=== PATIENT | male | born 1975 | race Two or more races ===

== ENCOUNTER 2018-03-28 01:30 | Emergency (ER) | payer OTHER ==
[~2018-03-28] VITALS: Ht 175.3 cm; Wt 99.8 kg
--- NOTE | 2018-03-28 01:45 | NUR ---
BIBA +SI, STATES HE "WANTS TO JUMP IN FRONT OF MOVING TRAFFIC". HX OF BIPOLAR SCHIZOPHRENIA, +AUDITORY HALLUCINATIONS. PT IS HOMELESS. AOX4, VSS, RESPIRATIONS EVEN AND UNLABORED. SKIN WARM TO TOUCH, DRY, INTACT. DENIES SOB, DIZZINESS, WEAKNESS, N/V/D. PT PLACED ON SUICIDAL PRECAUTIONS. WILL CONT TO MONITOR CLOSELY.
[2018-03-28 02:10] LABS: BASOPHILS % (AUTO) 0.5 % (0.0-2.0); EOSINOPHILS % (AUTO) 0.8 % (0.0-6.0); HEMATOCRIT 41 % (39-51); HEMOGLOBIN 13.2 g/dL (13.5-17.5); LYMPHOCYTES # (AUTO) 1.9 /CMM (0.8-4.8); LYMPHOCYTES % (AUTO) 26.9 % (20.0-44.0); MEAN CORPUSCULAR HGB CONC 32 g/dl (31.0-36.0); MEAN CORPUSCULAR VOLUME 92 fL (80-96); MONOCYTES # (AUTO) 0.8 /CMM (0.1-1.30); NEUTROPHILS # (AUTO) 4.4 /CMM (1.8-8.9); NEUTROPHILS % (AUTO) 60.8 % (43.0-81.0); PLATELET COUNT (AUTO) 198 /CMM (150-450); WHITE BLOOD COUNT (AUTO) 7.2 K/uL (4.3-11.0)
[2018-03-28 02:22] LABS: ALCOHOL, BLOOD < 3 mg/dL (0-0); CALCIUM, SERUM 8.5 mg/dL (8.5-10.1); CARBON DIOXIDE 29 mmol/L (21-32); CHLORIDE 104 mmol/L (98-107); CREATININE 1.1 mg/dL (0.6-1.3); GLUCOSE 111 mg/dL (74-106); POTASSIUM 4.3 mmol/L (3.5-5.1); SODIUM SERUM 138 mmol/L (136-145); UREA NITROGEN, BLOOD 25 mg/dL (7-18)
[2018-03-28 02:31] LABS: VALPROIC ACID < 3 ug/mL (50-100)
--- NOTE | 2018-03-28 02:33 | NUR ---
CALLED DAO DUFF, RE: EVALUATING THE PT.
--- NOTE | 2018-03-28 03:07 | NUR ---
DAO DUFF, ARRIVED AND IS REVIEWING PT'S CHART.
--- NOTE | 2018-03-28 03:46 | NUR ---
PER DAO DUFF, PT IS TO GO TO [facility] IN THE AM. DO NOT FAX PAPERWORK TO INTAKE UNTIL AFTER 8AM BEDS ARE NOT AVAILABLE. ( PER HEMA AT [facility]). PACKET TO FAX TO [facility] INTAKE IS IN THE CHART.
--- NOTE | 2018-03-28 05:31 | NUR ---
Patient is resting comfortably in bed with eyes closed. Easily aroused. VSS
--- NOTE | 2018-03-28 06:03 | NUR ---
Patient is resting comfortably in bed with eyes closed. Easily aroused. VSS
--- NOTE | 2018-03-28 07:01 | NUR ---
PT APPEARS TO BE RESTING COMFORTABLY WITH NO S/S OF PAIN OR DISTRESS NOTED. VSS. WILL CONTINUE TO MONITOR THE PT.
--- NOTE | 2018-03-28 07:50 | NUR ---
pt sleeping upon rounds - resp easy and regular waiting for placement.
--- NOTE | 2018-03-28 08:33 | NUR ---
Face sheet and clinical information faxed to Abbie at [facility] intake.
--- NOTE | 2018-03-28 09:19 | NUR ---
Called Abbie at [facility] intake; will have a bed in 30 min
--- NOTE | 2018-03-28 11:01 | NUR ---
Abbie from [facility] intake, called back and states that they are unable to take the patient
--- NOTE | 2018-03-28 13:22 | NUR ---
pt became very combative and started screaming and yelling security at bedside
--- NOTE | 2018-03-28 13:25 | NUR ---
pt was escorted out by automotive technician and security
--- NOTE | 2018-03-28 13:48 | NUR ---
PT. VERBALIZED UNDERSTANDING OF AFTERCARE INSTRUCTIONS.Patient discharged to home in stable condition. Written and verbal after care instructions given. Patient verbalizes understanding of instruction. Pt advised to follow up with [facility] or primary
[2018-03-28 13:49] VITALS: BP 109/81
[2018-03-29] MEDS ORDERED: OLANZAPINE 10 MG VIAL IM ONE (09:37)
== END 2018-03-28 13:50 | disposition home or self-care (01) ==
LOC: ER 01:33
DX: F32.9 Major depressive disorder, single episode, unspecified (principal)
CPT/HCPCS: 36415; 80048-TC; 80164-TC; 80305; 85025-TC; A4606; G0480; J3490; Z7610

== ENCOUNTER 2018-03-28 14:50 | Emergency (ER) | payer OTHER ==
[~2018-03-28] VITALS: Ht 172.7 cm; Wt 95.3 kg
--- NOTE | 2018-03-28 15:35 | NUR ---
PT [employer], WAS WALKING IN THE STREET AFTER BEING DISCHARGED FROM [facility] AND BROUGHT BACK IN. DENIES SI/HI AT THIS TIME. RESP EVEN UNLABORED. PT YELLING AND BEING UNCOOPERATIVE AT THIS TIME. IN ER BED 04.
--- NOTE | 2018-03-28 17:30 | NUR ---
SARBJIT, CRISIS SHOE TRIMMER AT BEDSIDE
--- NOTE | 2018-03-28 18:56 | NUR ---
PT ASLEEP WITH BLANKET OVER HIS HEAD, EASILY AROUSABLE. CALLED FOR DINNER TRAY. ALL NEEDS ATTENDED TO.
--- NOTE | 2018-03-28 19:10 | NUR ---
BK PICKERING AT BEDSIDE 1:1 SITTER. NAD NOTED.
--- NOTE | 2018-03-28 21:41 | NUR ---
RESTING QUIETLY, NAD NOTED. LADAN BOURGEOIS REMAINS AT BEDSIDE. ASLEEP, EASILY AROUSABLE.
--- NOTE | 2018-03-29 00:10 | NUR ---
REPORT GIVEN TO SHANI RODRIGUEZ FOR JONATHON
--- NOTE | 2018-03-29 01:23 | NUR ---
STATES "I WANT FOOD". INFORMED BY DAVID "I WILL GET YOU A SANDWICH". PT SCREAMING "I WANT A REAL MEAL". PT INFORMED BY MYSELF "WE ONLY HAVE A SANDWICH AND THAT'S ALL WE CAN OFFER". PT STATES "WHATEVER". ALSO INFORMED PT HE WILL BE STAYING HERE THE WHOLE NIGHT BECAUSE ALL HOSPITALS REFUSED TO TAKE HIM.
[2018-03-29] MEDS ORDERED: LORAZEPAM 1 MG TABLET PO ONE (01:30)
[2018-03-29] MEDS ORDERED: OLANZAPINE 5 MG TABLET PO ONE (01:30)
--- NOTE | 2018-03-29 02:04 | NUR ---
RESTING WITH EYES CLOSED WITHOUT ANY S/S OF DISTRESS. RESP EVEN AND UNLABORED. "ALREADY HAD SANDWICH" PER SITTER.
--- NOTE | 2018-03-29 03:14 | NUR ---
REMAINS RESTING ON LT SIDE WITH NO S/S OF DSITRESS AT THIS TIME. RESP EVEN AND UNLABORED. SITTER STILL AT BEDSIDE.
--- NOTE | 2018-03-29 04:36 | NUR ---
MOVED TO ROOM 7 AT THIS TIME FOR SITTER TO WATCH BOTH SUICIDAL PTS
--- NOTE | 2018-03-29 06:11 | NUR ---
CALLED FROM [facility]. PER THOMAS/STEPHEN "PT IS ACCEPTED BUT NO BEDS AT THE MOMENT UNTIL DISCHARGES". ALSO "UNABLE TO PROVIE ACCEPTING DOCTOR AT THIS TIME. CALL US BACK AT [phone] FOR F/U"
--- NOTE | 2018-03-29 07:22 | NUR ---
Ailyn haque in [facility] - 03/29/18 at 3843 by FUNMILAYO KEYONA HIGHTOWER [phone]
--- NOTE | 2018-03-29 07:39 | NUR ---
REPORT GIVEN TO INDIA/CHG NURSE FOR JONATHON.
[2018-03-29] MEDS ORDERED: OLANZAPINE 10 MG VIAL IM ONE (10:00)
--- NOTE | 2018-03-29 10:21 | NUR ---
Ailyn haque in [facility] - 03/29/18 at 1058 by NASIMA ANG DC ON SITE FOR EVAL.
--- NOTE | 2018-03-29 10:58 | NUR ---
DR. ANDREA ON SITE FOR EVAL.
[2018-03-29] MEDS ORDERED: OLANZAPINE 5 MG TABLET PO SCH (11:00)
[2018-03-29] MEDS ORDERED: DIVALPROEX SODIUM 500 MG TABLET.DR PO SCH (11:00)
--- NOTE | 2018-03-29 11:24 | NUR ---
Report given to Devi RODRIGUEZ for continuity of care at [facility] pt will be going to room 223
[2018-03-29] MEDS ORDERED: DIVALPROEX SODIUM 500 MG TABLET.DR PO ONE (11:36)
[2018-03-29] MEDS ORDERED: OLANZAPINE 5 MG TABLET ONE (11:37)
[2018-03-29] MEDS ORDERED: clonazePAM 1 MG TABLET ONE (11:37)
--- NOTE | 2018-03-29 11:53 | NUR ---
CALLED ANDREA FOR BLS TRANSPORT TO [facility] 30 MIN ETA TRIP #: [id number]
[2018-03-29 12:53] VITALS: BP 125/65
--- NOTE | 2018-03-29 12:54 | NUR ---
PT LEFT VIA AMBULANCE ACCOMPANIED BY 2 EMT'S GOING TO [facility].
--- NOTE | 2018-03-29 12:54 | NUR ---
Patient discharged to home in stable condition. Written and verbal after care instructions given. Patient verbalizes understanding of instruction.
[2018-03-29] MEDS ORDERED: clonazePAM 1 MG TABLET PO SCH (13:00)
== END 2018-03-29 12:54 ==
LOC: ER 14:53
DX: R45.851 Suicidal ideations (principal); F20.9 Schizophrenia, unspecified; F32.9 Major depressive disorder, single episode, unspecified; F17.200 Nicotine dependence, unspecified, uncomplicated; Z59.0 Homelessness
CPT/HCPCS: 96372; 99285; A4606; Z7610

== ENCOUNTER 2019-07-06 10:58 | Emergency (ER) | payer OTHER ==
[~2019-07-06] VITALS: Ht 175.3 cm; Wt 94.3 kg
--- NOTE | 2019-07-06 11:16 | NUR ---
"I want to get clearance to go to [facility]- Episodes of SI run into traffic". REPORTS HX SCHIZOAFFECTIVE AND BIPOLAR DISORDER, WITH AUDITORY AND VISUAL HALLUCINATIONS. DENIES HI. DENIES SOB, PAIN, OR ANY OTHER MEDICAL COMPLAINTS AT THIS TIME. SUICIDE PRECAUTIONS IN PLACE: BELONGINGS LABELED AND STORED IN PT LOCKERS, PT IN GOWN, SITTER AT BEDSIDE. SECURITY CALLED FOR WANDING. READY FOR MD KEN.
--- NOTE | 2019-07-06 11:19 | NUR ---
SECURITY AT BEDSIDE FOR WANDING. URINE SENT TO [facility].
--- NOTE | 2019-07-06 11:32 | NUR ---
FOOD TRAY GIVEN
--- NOTE | 2019-07-06 11:45 | NUR ---
DR HARGROVE AT BEDSIDE FOR EVAL.
[2019-07-06 11:56] LABS: APPEARANCE,URINE Clear (CLEAR); BILIRUBIN,URINE Negative (NEGATIVE); BLOOD, URINE Trace-intact Ery/uL (NEGATIVE); COLOR,URINE Yellow (YELLOW); KETONES,URINE Negative (NEGATIVE); LEUKOCYTE ESTERASE ,URINE Trace (NEGATIVE); NITRITE, URINE Negative (NEGATIVE); PROTEIN,URINE Negative (NEGATIVE); UGLUCOSE Negative (NEGATIVE); UROBILINOGEN,URINE 0.2 EU/dL (0.2)
--- NOTE | 2019-07-06 11:57 | NUR ---
TERRAZZO WORKER AT BEDSIDE
[2019-07-06 12:05] LABS: BACTERIA,URINE Few /HPF (None Seen); RBC,URINE 0-2 /HPF (0-2); SQUAMOUS EPITHELIAL CELL,UR None Seen /HPF (None Seen)
[2019-07-06 12:06] LABS: BASOPHILS % (AUTO) 0.5 % (0.0-2.0); EOSINOPHILS % (AUTO) 0.1 % (0.0-6.0); HEMATOCRIT 39 % (39-51); HEMOGLOBIN 12.8 g/dL (13.5-17.5); LYMPHOCYTES # (AUTO) 2.5 /CMM (0.8-4.8); LYMPHOCYTES % (AUTO) 28.4 % (20.0-44.0); MEAN CORPUSCULAR HGB CONC 33 g/dl (31.0-36.0); MEAN CORPUSCULAR VOLUME 92 fL (80-96); MONOCYTES # (AUTO) 0.6 /CMM (0.1-1.30); MONOCYTES % (AUTO) 6.4 % (2.0-12.0); NEUTROPHILS # (AUTO) 5.7 /CMM (1.8-8.9); NEUTROPHILS % (AUTO) 64.6 % (43.0-81.0); PLATELET COUNT (AUTO) 218 /CMM (150-450); RED BLOOD CELL COUNT(AUTO) 4.22 MIL/uL (4.5-6.0); WHITE BLOOD COUNT (AUTO) 8.8 K/uL (4.3-11.0)
[2019-07-06 12:14] LABS: CALCIUM, SERUM 8.7 mg/dL (8.5-10.1); CARBON DIOXIDE 31 mmol/L (21-32); CHLORIDE 104 mmol/L (98-107); CREATININE 0.9 mg/dL (0.6-1.3); GLUCOSE 101 mg/dL (74-106); POTASSIUM 3.8 mmol/L (3.5-5.1); SODIUM SERUM 140 mmol/L (136-145); UREA NITROGEN, BLOOD 13 mg/dL (7-18)
[2019-07-06 12:21] LABS: ACETAMINOPHEN 0 ug/ml (10-30); ALANINE AMINOTRANSFERASE 15 U/L (12-78); ALBUMIN 3.5 g/dL (3.4-5.0); ALCOHOL, BLOOD < 3 mg/dL (0-0); ALKALINE PHOSPHATASE 84 U/L (46-116); ASPARTATE AMINOTRANSFERASE 14 U/L (15-37); BILIRUBIN,DIRECT 0.1 mg/dL (0.0-0.2); BILIRUBIN,TOTAL 0.4 mg/dL (0.2-1.0); SALICYLATE 1.9 mg/dL (2.8-20.0); TOTAL PROTEIN, SERUM 7.1 g/dL (6.4-8.2)
--- NOTE | 2019-07-06 12:21 | NUR ---
Per ED notes, pt is a 44 year old male who came to [facility] seeking voluntary psychiatric admission to [facility]. CHATA contacted Uriel to initiate psychiatric admission to [facility]. Uriel informed CHATA, they will have a bed for the pt and to fax clinicals to intake. Labs are pending at this time. ARBORER to fax clinicals once labs are available.
--- NOTE | 2019-07-06 13:17 | NUR ---
Clinicals faxed [facility]pt.
--- NOTE | 2019-07-06 13:26 | NUR ---
PER CHATA SILVA, CLINICALS FAXED TO [facility]
--- NOTE | 2019-07-06 13:32 | NUR ---
Patient is resting comfortably in bed with eyes closed. Easily aroused. VSS
--- NOTE | 2019-07-06 14:45 | NUR ---
Ailyn haque in ED - 07/06/19 at 1457 by SUMEET Patient discharged to home in stable condition. Written and verbal after care instructions given. Patient verbalizes understanding of instruction.
--- NOTE | 2019-07-06 15:51 | NUR ---
PT STATING HE IS NO LONGER SUICIDAL AND WANTS TO LEAVE. AMBULATES WITH A STEADY GAIT. ERMD NOTIFIED.
--- NOTE | 2019-07-06 16:06 | NUR ---
Patient discharged to home in stable condition. Written and verbal after care instructions given. Patient verbalizes understanding of instruction.
[2019-07-06 16:10] VITALS: BP 126/78
== END 2019-07-06 16:10 | disposition home or self-care (01) ==
LOC: ER 11:02
DX: R45.851 Suicidal ideations (principal); F31.9 Bipolar disorder, unspecified; F20.9 Schizophrenia, unspecified; Z59.0 Homelessness
CPT/HCPCS: 36415; 80048; 80076; 80305; 80307; 80329; 81001; 85025; 99283; G0480; 81000-TC

== ENCOUNTER 2019-07-09 20:02 | Emergency (ER) | payer OTHER ==
[~2019-07-09] VITALS: Ht 175.3 cm; Wt 94.3 kg
--- NOTE | 2019-07-09 20:27 | NUR ---
SITTER AT BEDSIDE
--- NOTE | 2019-07-09 20:27 | NUR ---
PT BIBSELF C/O SUICIDAL IDEATION WITH PLAN TO RUN INTO TRAFFIC. PT DENIES HI OR HALLUCINATIONS AT THIS TIME. PT AAOX4. CALM AND COOPERATIVE. VITAL SIGNS STABLE. RESPIRATIONS EVEN AND UNLABORED. SKIN INTACT. AMBULATORY WITH STEADY GAIT. NO ACUTE DISTRESS NOTED AT THIS TIME. PT PLACED IN GOWN. BELONGINGS COLLECTED AND PLACED IN PATIENT LOCKER.
--- NOTE | 2019-07-09 20:30 | NUR ---
URINE SPECIMEN COLLECTED AND SENT TO LAB.
--- NOTE | 2019-07-09 20:35 | NUR ---
ER PHLEB AT BEDSIDE FOR BLOOD DRAW.
[2019-07-09 20:40] LABS: APPEARANCE,URINE Clear (CLEAR); BASOPHILS # (AUTO) 0.3 /CMM (0.0-0.2); BASOPHILS % (AUTO) 3.5 % (0.0-2.0); BILIRUBIN,URINE Negative (NEGATIVE); BLOOD, URINE Negative Ery/uL (NEGATIVE); COLOR,URINE Yellow (YELLOW); EOSINOPHILS % (AUTO) 1.1 % (0.0-6.0); HEMATOCRIT 40 % (39-51); HEMOGLOBIN 13.2 g/dL (13.5-17.5); KETONES,URINE Negative (NEGATIVE); LEUKOCYTE ESTERASE ,URINE Trace (NEGATIVE); LYMPHOCYTES # (AUTO) 1.3 /CMM (0.8-4.8); LYMPHOCYTES % (AUTO) 14.2 % (20.0-44.0); MEAN CORPUSCULAR HGB CONC 33 g/dl (31.0-36.0); MEAN CORPUSCULAR VOLUME 93 fL (80-96); MONOCYTES # (AUTO) 0.5 /CMM (0.1-1.30); MONOCYTES % (AUTO) 4.9 % (2.0-12.0); NEUTROPHILS # (AUTO) 7.2 /CMM (1.8-8.9); NEUTROPHILS % (AUTO) 76.3 % (43.0-81.0); NITRITE, URINE Negative (NEGATIVE); PH,URINE 5.5 (5.0-8.0); PLATELET COUNT (AUTO) 230 /CMM (150-450); PROTEIN,URINE Negative (NEGATIVE); RED BLOOD CELL COUNT(AUTO) 4.33 MIL/uL (4.5-6.0); UGLUCOSE Negative (NEGATIVE); UROBILINOGEN,URINE 0.2 EU/dL (0.2); WHITE BLOOD COUNT (AUTO) 9.5 K/uL (4.3-11.0)
[2019-07-09 20:47] LABS: BACTERIA,URINE None seen /HPF (None Seen); RBC,URINE 0-2 /HPF (0-2); SQUAMOUS EPITHELIAL CELL,UR None Seen /HPF (None Seen)
[2019-07-09 20:55] LABS: CARBON DIOXIDE 29 mmol/L (21-32); CHLORIDE 105 mmol/L (98-107); CREATININE 1.3 mg/dL (0.6-1.3); GLUCOSE 141 mg/dL (74-106); POTASSIUM 3.8 mmol/L (3.5-5.1); SODIUM SERUM 141 mmol/L (136-145); UREA NITROGEN, BLOOD 22 mg/dL (7-18)
[2019-07-09 21:11] LABS: ACETAMINOPHEN 0 ug/ml (10-30); ALANINE AMINOTRANSFERASE 9 U/L (12-78); ALBUMIN 3.5 g/dL (3.4-5.0); ALCOHOL, BLOOD < 3 mg/dL (0-0); ALKALINE PHOSPHATASE 104 U/L (46-116); ASPARTATE AMINOTRANSFERASE 11 U/L (15-37); BILIRUBIN,DIRECT 0.1 mg/dL (0.0-0.2); BILIRUBIN,TOTAL 0.3 mg/dL (0.2-1.0); SALICYLATE 2.3 mg/dL (2.8-20.0); TOTAL PROTEIN, SERUM 7.3 g/dL (6.4-8.2)
--- NOTE | 2019-07-09 21:45 | NUR ---
INFORMED BY [facility] SUAREZ THAT PT IS ON THE DO NOT ADMIT LIST. HE WAS ALSO D/C FROM [facility] THIS MORNING.
--- NOTE | 2019-07-09 22:02 | NUR ---
CALLED CRISIS CLINICAN JENNIFER DUFF FOR EVALUATION. WILL FOLLOW UP
--- NOTE | 2019-07-09 22:08 | NUR ---
SPOKE WITH TOOL CHECKER JENNIFER DUFF AND [facility]
--- NOTE | 2019-07-09 22:15 | NUR ---
[facility] PER LLUVIA FROM [facility], NO MALE BED AVAILABLE AT THIS TIME. WILL FOLLOW UP
[2019-07-09 22:36] VITALS: BP 121/88
--- NOTE | 2019-07-09 22:36 | NUR ---
Patient given written and verbal discharge instructions. Patient verbalizes understanding of instructions. Patient is ambulatory with steady gait. Refuses offer of long-term placement. Patient given list of available shelters in surrounding area.
== END 2019-07-09 22:38 | disposition home or self-care (01) ==
LOC: ER 20:05
DX: R45.851 Suicidal ideations (principal); F15.10 Other stimulant abuse, uncomplicated; F31.9 Bipolar disorder, unspecified; F20.9 Schizophrenia, unspecified; Z59.0 Homelessness
CPT/HCPCS: 36415; 80048; 80076; 80305; 80307; 80329; 81001; 85025; 99284; G0480; 81000-TC

== ENCOUNTER 2019-08-05 04:55 | Emergency (ER) | payer OTHER ==
[~2019-08-05] VITALS: Ht 175.3 cm; Wt 97.5 kg
--- NOTE | 2019-08-05 04:55 | NUR ---
TO ER BED 11 AMBULATORY C/O SI WITH PLAN TO WALK INTO TRAFFIC. DENIES HI. PT AAOX4 NO ACUTE DISTRESS NOTED, RESP EVEN AND UNLABORED. PT CALM AND COOPERATIVE AT THIS TIME. PLACE PT ON HOSPITAL GOWN, ALL BELONGINGS REMOVED, 1:1 SITTER AT BEDSIDE FOR PT SAFETY. URINE SAMPLE COLLECTED AND SENT TO LAB.
--- NOTE | 2019-08-05 05:41 | NUR ---
ENTRY ANALYST AT BEDSIDE FOR BLOOD DRAW.
[2019-08-05 05:44] LABS: BASOPHILS # (AUTO) 0.1 /CMM (0.0-0.2); EOSINOPHILS % (AUTO) 1.2 % (0.0-6.0); HEMATOCRIT 41 % (39-51); HEMOGLOBIN 13.5 g/dL (13.5-17.5); LYMPHOCYTES # (AUTO) 2.1 /CMM (0.8-4.8); LYMPHOCYTES % (AUTO) 26.9 % (20.0-44.0); MEAN CORPUSCULAR HGB CONC 33 g/dl (31.0-36.0); MEAN CORPUSCULAR VOLUME 93 fL (80-96); MONOCYTES # (AUTO) 0.8 /CMM (0.1-1.30); MONOCYTES % (AUTO) 9.6 % (2.0-12.0); NEUTROPHILS # (AUTO) 4.8 /CMM (1.8-8.9); NEUTROPHILS % (AUTO) 61.3 % (43.0-81.0); PLATELET COUNT (AUTO) 234 /CMM (150-450); RED BLOOD CELL COUNT(AUTO) 4.41 MIL/uL (4.5-6.0); WHITE BLOOD COUNT (AUTO) 7.9 K/uL (4.3-11.0)
[2019-08-05 05:47] LABS: APPEARANCE,URINE CLEAR (CLEAR); BILIRUBIN,URINE NEGATIVE (NEGATIVE); BLOOD, URINE NEGATIVE Ery/uL (NEGATIVE); COLOR,URINE YELLOW (YELLOW); KETONES,URINE NEGATIVE (NEGATIVE); LEUKOCYTE ESTERASE ,URINE TRACE (NEGATIVE); NITRITE, URINE NEGATIVE (NEGATIVE); PROTEIN,URINE NEGATIVE (NEGATIVE); UGLUCOSE NEGATIVE (NEGATIVE)
[2019-08-05 06:03] LABS: BACTERIA,URINE None seen /HPF (None Seen); CALCIUM, SERUM 9.1 mg/dL (8.5-10.1); CARBON DIOXIDE 30 mmol/L (21-32); CHLORIDE 102 mmol/L (98-107); CREATININE 1.1 mg/dL (0.6-1.3); GLUCOSE 78 mg/dL (74-106); RBC,URINE 0-2 /HPF (0-2); SODIUM SERUM 140 mmol/L (136-145); SQUAMOUS EPITHELIAL CELL,UR Few /HPF (None Seen); UREA NITROGEN, BLOOD 24 mg/dL (7-18)
[2019-08-05 06:12] LABS: ALANINE AMINOTRANSFERASE 27 U/L (12-78); ALBUMIN 3.7 g/dL (3.4-5.0); ALCOHOL, BLOOD < 3 mg/dL (0-0); ALKALINE PHOSPHATASE 84 U/L (46-116); ASPARTATE AMINOTRANSFERASE 25 U/L (15-37); BILIRUBIN,DIRECT 0.2 mg/dL (0.0-0.2); BILIRUBIN,TOTAL 0.7 mg/dL (0.2-1.0); TOTAL PROTEIN, SERUM 7.9 g/dL (6.4-8.2)
[2019-08-05 06:17] LABS: ACETAMINOPHEN 0 ug/ml (10-30); SALICYLATE 1.5 mg/dL (2.8-20.0)
--- NOTE | 2019-08-05 09:14 | NUR ---
FACESHEET AND CLINICALS RE FAXED. CALLED INTAKE. SPOKE TO [facility] FOR CONFIRMATION.
--- NOTE | 2019-08-05 12:03 | NUR ---
PT ACCEPTED TO [facility]. ACCEPTING PSYCHIATRIST MITA. CALL KRISTY FOR REPORT [phone] EX [phone] OR EX [phone]
[2019-08-05 12:06] VITALS: BP 122/71
--- NOTE | 2019-08-05 12:20 | NUR ---
CALLED CALL THE CAR [phone] ROSALIO 2-3 HOURS ETA
--- NOTE | 2019-08-05 12:58 | NUR ---
REPORT GIVEN TO KAREL RODRIGUEZ OF [facility]
== END 2019-08-05 13:00 ==
LOC: ER 04:57
DX: R45.851 Suicidal ideations (principal); F17.200 Nicotine dependence, unspecified, uncomplicated; Z59.0 Homelessness
CPT/HCPCS: 36415; 80048; 80076; 80305; 80307; 80329; 81001; 85025; 87086; 99285; G0480; 81000-TC

== ENCOUNTER 2019-08-10 22:03 | Emergency (ER) | payer OTHER ==
[~2019-08-10] VITALS: Ht 175.3 cm; Wt 94.3 kg
[2019-08-10 23:00] LABS: BASOPHILS # (AUTO) 0.1 /CMM (0.0-0.2); BASOPHILS % (AUTO) 0.8 % (0.0-2.0); EOSINOPHILS % (AUTO) 1.6 % (0.0-6.0); HEMATOCRIT 42 % (39-51); HEMOGLOBIN 13.9 g/dL (13.5-17.5); LYMPHOCYTES # (AUTO) 2.6 /CMM (0.8-4.8); LYMPHOCYTES % (AUTO) 25.8 % (20.0-44.0); MEAN CORPUSCULAR HGB CONC 33 g/dl (31.0-36.0); MEAN CORPUSCULAR VOLUME 93 fL (80-96); MONOCYTES # (AUTO) 0.7 /CMM (0.1-1.30); MONOCYTES % (AUTO) 6.7 % (2.0-12.0); NEUTROPHILS # (AUTO) 6.6 /CMM (1.8-8.9); NEUTROPHILS % (AUTO) 65.1 % (43.0-81.0); PLATELET COUNT (AUTO) 234 /CMM (150-450); RED BLOOD CELL COUNT(AUTO) 4.55 MIL/uL (4.5-6.0); WHITE BLOOD COUNT (AUTO) 10.1 K/uL (4.3-11.0)
--- NOTE | 2019-08-10 23:02 | NUR ---
S/I PLANS TO RUN INTO TRAFFIC, PT TO BED 14, BELONGINGS KEPT IN LOCKER, SI PRECAUTIONS STARTED, 1:1 SITTER, VSS.
[2019-08-10 23:04] LABS: APPEARANCE,URINE Clear (CLEAR); BILIRUBIN,URINE Negative (NEGATIVE); BLOOD, URINE Negative Ery/uL (NEGATIVE); COLOR,URINE Yellow (YELLOW); KETONES,URINE Negative (NEGATIVE); LEUKOCYTE ESTERASE ,URINE Small (NEGATIVE); NITRITE, URINE Negative (NEGATIVE); PH,URINE 5.5 (5.0-8.0); PROTEIN,URINE Negative (NEGATIVE); UGLUCOSE Negative (NEGATIVE); UROBILINOGEN,URINE 0.2 EU/dL (0.2)
[2019-08-10 23:13] LABS: ALANINE AMINOTRANSFERASE 22 U/L (12-78); ALBUMIN 3.7 g/dL (3.4-5.0); ALCOHOL, BLOOD < 3 mg/dL (0-0); ALKALINE PHOSPHATASE 98 U/L (46-116); ASPARTATE AMINOTRANSFERASE 18 U/L (15-37); BILIRUBIN,DIRECT 0.1 mg/dL (0.0-0.2); BILIRUBIN,TOTAL 0.6 mg/dL (0.2-1.0); CALCIUM, SERUM 9.5 mg/dL (8.5-10.1); CARBON DIOXIDE 33 mmol/L (21-32); CHLORIDE 103 mmol/L (98-107); CREATININE 1.2 mg/dL (0.6-1.3); GLUCOSE 87 mg/dL (74-106); POTASSIUM 5.1 mmol/L (3.5-5.1); SODIUM SERUM 139 mmol/L (136-145); TOTAL PROTEIN, SERUM 8.2 g/dL (6.4-8.2); UREA NITROGEN, BLOOD 19 mg/dL (7-18)
[2019-08-10 23:16] LABS: ACETAMINOPHEN 0 ug/ml (10-30); SALICYLATE 1.9 mg/dL (2.8-20.0)
[2019-08-10 23:28] LABS: BACTERIA,URINE Few /HPF (None Seen); RBC,URINE 0-2 /HPF (0-2); SQUAMOUS EPITHELIAL CELL,UR Rare /HPF (None Seen); WBC,URINE 21-50 /HPF (0-3)
--- NOTE | 2019-08-11 01:24 | NUR ---
PT RESTING COMFORTABLY IN BED. NO ACUTE DISTRESS NOTED. VSS. SITTER AT BEDSIDE FOR SAFETY
--- NOTE | 2019-08-11 04:38 | NUR ---
PT ACCEPTED TO [facility] BY DR MARTINEZ. UNIT P6. # FOR REPORT [phone]
--- NOTE | 2019-08-11 04:57 | NUR ---
[facility] CALLED FOR TRANSPORT. ETA 90-120 MINUTES
--- NOTE | 2019-08-11 05:43 | NUR ---
PER SOCAL SADIE, THEY ARE NOT ACCEPTING THE PATIENT.
--- NOTE | 2019-08-11 06:19 | NUR ---
PT ACC[facility]PTED TO [facility] BY DR CHAVARRIA AFTER 729. # FOR REPORT [phone]
--- NOTE | 2019-08-11 07:18 | NUR ---
[facility]. 45 MINUTE ETA. TRIP NUMBER [id number].
--- NOTE | 2019-08-11 08:05 | NUR ---
REPORT GIVEN TO JENNIFER [facility]ENGA [facility] FOR [facility].
[2019-08-11 08:06] VITALS: BP 121/71
--- NOTE | 2019-08-11 08:19 | NUR ---
FOOD TRAY PROVIDED.
--- NOTE | 2019-08-11 08:55 | NUR ---
REPORT GIVEN TO EMS FOR PT TRANSFER TO [facility].
== END 2019-08-11 09:00 ==
LOC: ER 22:03
DX: R45.851 Suicidal ideations (principal); F19.10 Other psychoactive substance abuse, uncomplicated; F31.9 Bipolar disorder, unspecified; F20.9 Schizophrenia, unspecified; Z59.0 Homelessness
CPT/HCPCS: 36415; 80048; 80076; 80305; 80307; 80329; 81001; 85025; 87086; 99285; G0480; 81000-TC

== ENCOUNTER 2019-09-18 06:05 | Emergency (ER) | payer OTHER ==
[~2019-09-18] VITALS: Ht 175.3 cm; Wt 93.0 kg
--- NOTE | 2019-09-18 06:25 | NUR ---
CALLED PT TO BE TRIAGED, NO ANSWER
--- NOTE | 2019-09-18 06:35 | NUR ---
CALLED PT TO BE TRIAGED, NO ANSWER
--- NOTE | 2019-09-18 06:44 | NUR ---
Patient eloped from facility. ER MD notified.
--- NOTE | 2019-09-18 07:05 | NUR ---
PT BIB SELF C/O SUICIDAL IDEATION WITH PLAN TO RUN INTO TRAFFIC, PT IS AAXO4, NOT IN RESPIRATORY DISTRESS, V/S STABLE, KEPT RESTED AND COMFORTABLE, WILL CONTINUE TO MONITOR.
--- NOTE | 2019-09-18 07:10 | NUR ---
PT SEEN AND EXAMINED BY .
[2019-09-18 07:20] LABS: APPEARANCE,URINE CLEAR (CLEAR); BILIRUBIN,URINE NEGATIVE (NEGATIVE); BLOOD, URINE NEGATIVE Ery/uL (NEGATIVE); COLOR,URINE YELLOW (YELLOW); KETONES,URINE NEGATIVE (NEGATIVE); LEUKOCYTE ESTERASE ,URINE NEGATIVE (NEGATIVE); NITRITE, URINE NEGATIVE (NEGATIVE); PROTEIN,URINE NEGATIVE (NEGATIVE); UGLUCOSE NEGATIVE (NEGATIVE)
--- NOTE | 2019-09-18 07:35 | NUR ---
ER PHLEB AT BEDSIDE FOR BLOOD DRAW.
[2019-09-18 07:46] LABS: RBC,URINE 0-2 /HPF (0-2); WBC,URINE 0-2 /HPF (0-3)
[2019-09-18 07:47] LABS: BACTERIA,URINE None seen /HPF (None Seen); SQUAMOUS EPITHELIAL CELL,UR 0-2 /HPF (None Seen)
[2019-09-18] MEDS ORDERED: LIDOCAINE /MPF 1% VIAL 5 ML VIAL ONE (07:49)
[2019-09-18 08:20] LABS: BASOPHILS % (AUTO) 0.5 % (0.0-2.0); EOSINOPHILS % (AUTO) 0.8 % (0.0-6.0); HEMATOCRIT 41 % (39-51); LYMPHOCYTES # (AUTO) 2.2 /CMM (0.8-4.8); LYMPHOCYTES % (AUTO) 30.4 % (20.0-44.0); MEAN CORPUSCULAR HGB CONC 32 g/dl (31.0-36.0); MEAN CORPUSCULAR VOLUME 94 fL (80-96); MONOCYTES # (AUTO) 0.6 /CMM (0.1-1.30); MONOCYTES % (AUTO) 8.2 % (2.0-12.0); NEUTROPHILS # (AUTO) 4.4 /CMM (1.8-8.9); NEUTROPHILS % (AUTO) 60.1 % (43.0-81.0); PLATELET COUNT (AUTO) 230 /CMM (150-450); RED BLOOD CELL COUNT(AUTO) 4.33 MIL/uL (4.5-6.0); WHITE BLOOD COUNT (AUTO) 7.3 K/uL (4.3-11.0)
[2019-09-18 08:25] LABS: CALCIUM, SERUM 8.5 mg/dL (8.5-10.1); CARBON DIOXIDE 31 mmol/L (21-32); CHLORIDE 104 mmol/L (98-107); CREATININE 0.9 mg/dL (0.6-1.3); GLUCOSE 80 mg/dL (74-106); POTASSIUM 4.1 mmol/L (3.5-5.1); SODIUM SERUM 139 mmol/L (136-145); UREA NITROGEN, BLOOD 10 mg/dL (7-18)
[2019-09-18 08:43] LABS: ALANINE AMINOTRANSFERASE 24 U/L (12-78); ALBUMIN 3.4 g/dL (3.4-5.0); ALCOHOL, BLOOD < 3 mg/dL (0-0); ALKALINE PHOSPHATASE 96 U/L (46-116); ASPARTATE AMINOTRANSFERASE 20 U/L (15-37); BILIRUBIN,DIRECT 0.1 mg/dL (0.0-0.2); BILIRUBIN,TOTAL 0.4 mg/dL (0.2-1.0)
[2019-09-18 08:44] LABS: ACETAMINOPHEN < 2 ug/ml (10-30); SALICYLATE < 2.8 mg/dL (2.8-20.0)
--- NOTE | 2019-09-18 08:56 | NUR ---
SENIOR ENGINEERING TECH contacted Uriel at [facility] to initiate voluntary hospitalization. Per Uriel, they will have a bed for the patient. DAO faxed clinicals to [facility] intake.
--- NOTE | 2019-09-18 09:42 | NUR ---
ROTARY CUTTER OPERATOR followed up with Nadia at [facility] intake and was informed pt has been referred to [facility] public area supervisor and clinicals are being reviewed at this time. Nadia to f/u with SW once pt is accepted. ROTARY CUTTER OPERATOR updated ED CRN Gener.
--- NOTE | 2019-09-18 11:06 | NUR ---
GOING TO UNIT II, DR FAYE ADMITTING. REPORT TO [phone] EXT [phone]
--- NOTE | 2019-09-18 11:30 | NUR ---
REPORT GIVEN TO JENNIFER ALVARENGA [facility] FOR [facility]ATH[facility].
--- NOTE | 2019-09-18 11:52 | NUR ---
[facility] ETA 90 MINUTES. RESERVATION NUMBER [id number].
--- NOTE | 2019-09-18 12:50 | NUR ---
PT STATED HE WANTS TO BE DISCHARGE AND NOT SUICIDAL ANYMORE. MD AWARE.
--- NOTE | 2019-09-18 12:56 | NUR ---
Patient given written and verbal discharge instructions. Patient verbalizes understanding of instructions. Patient is ambulatory with steady gait. Refuses offer of assisted placement. Patient given list of available shelters in surrounding area.
[2019-09-18 12:57] VITALS: BP 133/81
== END 2019-09-18 12:57 | disposition home or self-care (01) ==
LOC: ER 06:06
DX: S01.511A Laceration without foreign body of lip, initial encounter (principal); R45.851 Suicidal ideations; F19.10 Other psychoactive substance abuse, uncomplicated; F20.9 Schizophrenia, unspecified; F17.200 Nicotine dependence, unspecified, uncomplicated; Z59.0 Homelessness; X58.XXXA Exposure to other specified factors, initial encounter; Y93.89 Activity, other specified; Y92.89 Other specified places as the place of occurrence of the external cause; Y99.8 Other external cause status
CPT/HCPCS: 36415; 40650; 80048; 80076; 80305; 80307; 80329; 81001; 85025; 99284; G0480; J3490; 81000-TC

== ENCOUNTER 2019-10-09 06:20 | Emergency (ER) | payer OTHER ==
[~2019-10-09] VITALS: Ht 175.3 cm; Wt 94.3 kg
--- NOTE | 2019-10-09 06:25 | NUR ---
PT CAME TO THE ED C/O SI "RUN INTO TRAFFIC" -HI, REQUESTING FOR VOLUNTARY PSYCH ADMIT. PT AAOX4, VSS, RESPIRATIONS EVEN AND UNLABORED ON RA W/ NAD NOTED. PT CHANGED INTO GOWN, BELONGINGS PLACED TO LOCKER, SUICIDE PRECAUTIONS IMPLEMENTED. SITTER AT BEDSIDE FOR SAFETY. WILL CONTINUE TO MONITOR
--- NOTE | 2019-10-09 06:31 | NUR ---
URINE COLLECTED AND SENT TO LAB
[2019-10-09 07:17] LABS: APPEARANCE,URINE CLEAR (CLEAR); BILIRUBIN,URINE NEGATIVE (NEGATIVE); BLOOD, URINE NEGATIVE Ery/uL (NEGATIVE); COLOR,URINE DARK YELLO (YELLOW); KETONES,URINE TRACE (NEGATIVE); LEUKOCYTE ESTERASE ,URINE NEGATIVE (NEGATIVE); NITRITE, URINE NEGATIVE (NEGATIVE); PROTEIN,URINE NEGATIVE (NEGATIVE); UGLUCOSE NEGATIVE (NEGATIVE)
[2019-10-09 07:18] LABS: CARBON DIOXIDE 31 mmol/L (21-32); CHLORIDE 101 mmol/L (98-107); GLUCOSE 133 mg/dL (74-106); SODIUM SERUM 137 mmol/L (136-145); UREA NITROGEN, BLOOD 19 mg/dL (7-18)
[2019-10-09 07:19] LABS: BASOPHILS % (AUTO) 0.3 % (0.0-2.0); EOSINOPHILS % (AUTO) 0.4 % (0.0-6.0); HEMATOCRIT 41 % (39-51); HEMOGLOBIN 13.3 g/dL (13.5-17.5); LYMPHOCYTES # (AUTO) 1.7 /CMM (0.8-4.8); LYMPHOCYTES % (AUTO) 17.5 % (20.0-44.0); MEAN CORPUSCULAR HGB CONC 33 g/dl (31.0-36.0); MEAN CORPUSCULAR VOLUME 92 fL (80-96); MONOCYTES # (AUTO) 0.6 /CMM (0.1-1.30); MONOCYTES % (AUTO) 5.9 % (2.0-12.0); NEUTROPHILS # (AUTO) 7.3 /CMM (1.8-8.9); NEUTROPHILS % (AUTO) 75.9 % (43.0-81.0); PLATELET COUNT (AUTO) 220 /CMM (150-450); RED BLOOD CELL COUNT(AUTO) 4.41 MIL/uL (4.5-6.0); WHITE BLOOD COUNT (AUTO) 9.7 K/uL (4.3-11.0)
[2019-10-09 07:25] LABS: ALANINE AMINOTRANSFERASE 29 U/L (12-78); ALBUMIN 3.7 g/dL (3.4-5.0); ALCOHOL, BLOOD < 3 mg/dL (0-0); ALKALINE PHOSPHATASE 98 U/L (46-116); ASPARTATE AMINOTRANSFERASE 28 U/L (15-37); BILIRUBIN,DIRECT 0.1 mg/dL (0.0-0.2); BILIRUBIN,TOTAL 0.7 mg/dL (0.2-1.0); TOTAL PROTEIN, SERUM 7.8 g/dL (6.4-8.2)
[2019-10-09 07:26] LABS: ACETAMINOPHEN 0 ug/ml (10-30); SALICYLATE 1.4 mg/dL (2.8-20.0)
[2019-10-09 07:48] LABS: BACTERIA,URINE Rare /HPF (None Seen); RBC,URINE 0-2 /HPF (0-2); SQUAMOUS EPITHELIAL CELL,UR Few /HPF (None Seen)
--- NOTE | 2019-10-09 09:00 | NUR ---
patient verbalized "i am not suicidal", made aware.
--- NOTE | 2019-10-09 09:11 | NUR ---
Pt denies any suicidal or homicidal ideation. Pt stated he lied and is not suicidal. Pt seen and evaluated by Dr. Kurtz
[2019-10-09 09:27] VITALS: BP 120/71
--- NOTE | 2019-10-09 09:27 | NUR ---
Patient given written and verbal discharge instructions. Patient verbalizes understanding of instructions. Patient is ambulatory with steady gait. Refuses offer of [facility] placement. Patient given list of available shelters in surrounding area.
== END 2019-10-09 09:27 | disposition home or self-care (01) ==
LOC: ER 06:22
DX: R45.851 Suicidal ideations (principal); Z76.5 Malingerer [conscious simulation]; F20.9 Schizophrenia, unspecified; F31.9 Bipolar disorder, unspecified; F17.200 Nicotine dependence, unspecified, uncomplicated; Z59.0 Homelessness
CPT/HCPCS: 36415; 80048; 80076; 80305; 80307; 80329; 81001; 85025; 87086; 99283; G0480; 81000-TC

== ENCOUNTER 2019-10-18 08:58 | Emergency (ER) | payer OTHER ==
[~2019-10-18] VITALS: Ht 172.7 cm; Wt 91.2 kg
--- NOTE | 2019-10-18 08:58 | NUR ---
PT BIB SELF C/O SI "I WANT TO RUN THRU TRAFFIC" PT IS AAOX4, NOT IN RESPIRATORY DISTRESS, V/S STABLE, KEPT RESTED AND COMFORTABLE. WILL CONTINUE TO MONITOR. SITTER AT BEDSIDE.
--- NOTE | 2019-10-18 09:00 | NUR ---
PT SEEN AND EXAMINED BY .
--- NOTE | 2019-10-18 09:05 | NUR ---
URINE SPECIMEN COLLECTED AND SENT TO LAB.
--- NOTE | 2019-10-18 09:06 | NUR ---
SECURITY AT BEDSIDE FOR WANDING.
[2019-10-18 09:17] LABS: APPEARANCE,URINE Clear (CLEAR); BILIRUBIN,URINE Negative (NEGATIVE); BLOOD, URINE Negative Ery/uL (NEGATIVE); COLOR,URINE Yellow (YELLOW); KETONES,URINE Negative (NEGATIVE); LEUKOCYTE ESTERASE ,URINE Negative (NEGATIVE); NITRITE, URINE Negative (NEGATIVE); PH,URINE 5.5 (5.0-8.0); PROTEIN,URINE Negative (NEGATIVE); UGLUCOSE Negative (NEGATIVE); UROBILINOGEN,URINE 0.2 EU/dL (0.2)
[2019-10-18 09:19] LABS: BASOPHILS % (AUTO) 0.4 % (0.0-2.0); EOSINOPHILS % (AUTO) 1.5 % (0.0-6.0); HEMATOCRIT 38 % (39-51); HEMOGLOBIN 12.6 g/dL (13.5-17.5); LYMPHOCYTES # (AUTO) 2.7 /CMM (0.8-4.8); MEAN CORPUSCULAR HGB CONC 33 g/dl (31.0-36.0); MEAN CORPUSCULAR VOLUME 92 fL (80-96); MONOCYTES # (AUTO) 0.5 /CMM (0.1-1.30); MONOCYTES % (AUTO) 5.9 % (2.0-12.0); NEUTROPHILS % (AUTO) 60.2 % (43.0-81.0); PLATELET COUNT (AUTO) 216 /CMM (150-450); RED BLOOD CELL COUNT(AUTO) 4.11 MIL/uL (4.5-6.0); WHITE BLOOD COUNT (AUTO) 8.3 K/uL (4.3-11.0)
[2019-10-18 09:25] LABS: CALCIUM, SERUM 8.4 mg/dL (8.5-10.1); CARBON DIOXIDE 29 mmol/L (21-32); CHLORIDE 108 mmol/L (98-107); CREATININE 0.9 mg/dL (0.6-1.3); GLUCOSE 123 mg/dL (74-106); POTASSIUM 4.2 mmol/L (3.5-5.1); SODIUM SERUM 141 mmol/L (136-145); UREA NITROGEN, BLOOD 20 mg/dL (7-18)
[2019-10-18 09:32] LABS: ACETAMINOPHEN < 2 ug/ml (10-30); ALANINE AMINOTRANSFERASE 22 U/L (12-78); ALBUMIN 3.5 g/dL (3.4-5.0); ALCOHOL, BLOOD < 3 mg/dL (0-0); ALKALINE PHOSPHATASE 96 U/L (46-116); ASPARTATE AMINOTRANSFERASE 16 U/L (15-37); BILIRUBIN,DIRECT 0.1 mg/dL (0.0-0.2); BILIRUBIN,TOTAL 0.3 mg/dL (0.2-1.0); SALICYLATE 1.7 mg/dL (2.8-20.0); TOTAL PROTEIN, SERUM 7.1 g/dL (6.4-8.2)
--- NOTE | 2019-10-18 09:50 | NUR ---
FAXED CLINICALS TO [facility].
--- NOTE | 2019-10-18 10:00 | NUR ---
[facility] [place] [facility]
--- NOTE | 2019-10-18 10:11 | NUR ---
SPOKE TO ANGIE AT [facility]. PT IS ON THE DO NOT ADMIT LIST FOR [facility]OTH [employer] AND [facility]. [employer] FOR DESTROYING PROPERTY AND [facility] FOR MAL[facility].
[2019-10-18] MEDS ORDERED: OLANZAPINE 5 MG TABLET ONE (13:58)
[2019-10-18] MEDS ORDERED: OLANZAPINE 5 MG TABLET PO ONE (14:00)
[2019-10-18 14:04] VITALS: BP 140/71
--- NOTE | 2019-10-18 14:05 | NUR ---
Patient given written and verbal discharge instructions. Patient verbalizes understanding of instructions. Patient is ambulatory with steady gait. Refuses offer of custodial placement. Patient given list of available shelters in surrounding area.
== END 2019-10-18 14:05 | disposition home or self-care (01) ==
LOC: ER 08:58
DX: F23 Brief psychotic disorder (principal); R45.851 Suicidal ideations; F15.10 Other stimulant abuse, uncomplicated; F12.10 Cannabis abuse, uncomplicated; D64.9 Anemia, unspecified; F31.9 Bipolar disorder, unspecified; Z59.0 Homelessness
CPT/HCPCS: 36415; 80048; 80076; 80305; 80307; 80329; 81001; 85025; 99284; G0480; 81000-TC

== ENCOUNTER → 2021-08-08 | Emergency (ER) | payer OTHER ==
[~2021-08-08] VITALS: Ht 175.3 cm; Wt 122.5 kg
--- NOTE | 2021-08-08 07:51 | NUR ---
BIBS C/O SI WITH PLAN TO WALK TOWARDS TRAFFIC, PT WANTS VOLUNTARY ADMISSION TO [facility]. PT BELONGING WERE TAKEN, SAFETY MEASURES IN PLACE, 1:1 SITTER AT BEDSIDE.
[2021-08-08 07:52] VITALS: BP 123/88
--- NOTE | 2021-08-08 07:58 | NUR ---
COVID ANTIGEN COLLECTED AND SENT
--- NOTE | 2021-08-08 08:01 | NUR ---
URINE COLLECTED AND SENT
[2021-08-08 08:14] LABS: BASOPHILS # (AUTO) 0.1 K/uL (0.0-0.2); BASOPHILS % (AUTO) 0.7 % (0.0-2.0); EOSINOPHILS % (AUTO) 0.3 % (0.0-6.0); HEMATOCRIT 40 % (39-51); LYMPHOCYTES % (AUTO) 18.7 % (20.0-44.0); MEAN CORPUSCULAR HGB CONC 33 g/dl (31.0-36.0); MEAN CORPUSCULAR VOLUME 89 fL (80-96); MONOCYTES # (AUTO) 0.7 K/uL (0.1-1.30); MONOCYTES % (AUTO) 6.6 % (2.0-12.0); NEUTROPHILS # (AUTO) 8.1 K/uL (1.8-8.9); NEUTROPHILS % (AUTO) 73.7 % (43.0-81.0); PLATELET COUNT (AUTO) 261 K/uL (150-450); RED BLOOD CELL COUNT(AUTO) 4.52 MIL/uL (4.5-6.0); WHITE BLOOD COUNT (AUTO) 10.9 K/uL (4.3-11.0)
[2021-08-08 08:52] LABS: ALANINE AMINOTRANSFERASE 21 U/L (12-78); ALBUMIN 3.5 g/dL (3.4-5.0); ALCOHOL, BLOOD < 3 mg/dL (0-0); ALKALINE PHOSPHATASE 90 U/L (46-116); ASPARTATE AMINOTRANSFERASE 16 U/L (15-37); BILIRUBIN,DIRECT 0.2 mg/dL (0.0-0.2); BILIRUBIN,TOTAL 1.1 mg/dL (0.2-1.0); CALCIUM, SERUM 9.1 mg/dL (8.5-10.1); CARBON DIOXIDE 29 mmol/L (21-32); CHLORIDE 99 mmol/L (98-107); CREATININE 0.9 mg/dL (0.6-1.3); GLUCOSE 119 mg/dL (74-106); POTASSIUM 4.1 mmol/L (3.5-5.1); SODIUM SERUM 133 mmol/L (136-145); TOTAL PROTEIN, SERUM 8.3 g/dL (6.4-8.2); UREA NITROGEN, BLOOD 13 mg/dL (7-18)
[2021-08-08 08:56] LABS: ACETAMINOPHEN 0 ug/ml (10-30)
--- NOTE | 2021-08-08 09:32 | NUR ---
PT STATED THAT HE IS NO LONGER SUICIDAL AND NO LONGER WANTS TO BE IN THE HOSPITAL. PT LEFT IN STABLE CONDITION.
== END | disposition left against medical advice (07) ==
LOC: ER 12:51
DX: R45.851 Suicidal ideations (principal); F19.10 Other psychoactive substance abuse, uncomplicated; F31.9 Bipolar disorder, unspecified; F20.9 Schizophrenia, unspecified; Z59.00 Homelessness unspecified; Z20.822 Contact with and (suspected) exposure to COVID-19
CPT/HCPCS: 36415; 80048; 80076; 80143; 80320; 85025; 87426; 99285; C9803; G0480

== ENCOUNTER 2021-09-18 02:42 | Emergency (ER) | payer OTHER ==
[~2021-09-18] VITALS: Ht 175.3 cm; Wt 122.5 kg
[2021-09-18 03:43] VITALS: BP 173/103
--- NOTE | 2021-09-18 03:44 | NUR ---
PRESENTED TO THE ER FOR C/O SI, PLANNING TO RUN INTO TRAFFIC. REQUESTING VOLUNTARY PSYCH ADMISSION. PT AMBULATORY WITH STEADY GAITS TO THE BATHROOM. URINE SAMPLE OBTAINED. COVID SWAB DONE, PATIENT WAS PLACED IN BED 18 , ON SI PRECAUTION. BELONGINGS KEPT IN SAFE AND SECURITY STAFF WAS CALLED TO WAND THE PT. WILL CONT TO MONITOR
[2021-09-18 03:56] LABS: BILIRUBIN,URINE NEGATIVE (NEGATIVE); COLOR,URINE YELLOW (YELLOW); LEUKOCYTE ESTERASE ,URINE TRACE (NEGATIVE); NITRITE, URINE NEGATIVE (NEGATIVE); PH,URINE 6.5 (5.0-8.0); PROTEIN,URINE NEGATIVE (NEGATIVE); UGLUCOSE NEGATIVE (NEGATIVE)
[2021-09-18 03:58] LABS: BASOPHILS # (AUTO) 0.1 K/uL (0.0-0.2); BASOPHILS % (AUTO) 0.7 % (0.0-2.0); EOSINOPHILS % (AUTO) 0.4 % (0.0-6.0); HEMATOCRIT 42 % (39-51); HEMOGLOBIN 13.8 g/dL (13.5-17.5); LYMPHOCYTES # (AUTO) 2.5 K/uL (0.8-4.8); MEAN CORPUSCULAR HGB CONC 33 g/dl (31.0-36.0); MEAN CORPUSCULAR VOLUME 88 fL (80-96); MONOCYTES # (AUTO) 0.8 K/uL (0.1-1.30); MONOCYTES % (AUTO) 6.3 % (2.0-12.0); NEUTROPHILS # (AUTO) 8.6 K/uL (1.8-8.9); NEUTROPHILS % (AUTO) 71.6 % (43.0-81.0); PLATELET COUNT (AUTO) 266 K/uL (150-450); RED BLOOD CELL COUNT(AUTO) 4.82 MIL/uL (4.5-6.0)
[2021-09-18 04:12] LABS: ALANINE AMINOTRANSFERASE 17 U/L (12-78); ALBUMIN 3.6 g/dL (3.4-5.0); ALCOHOL, BLOOD < 3 mg/dL (0-0); ALKALINE PHOSPHATASE 95 U/L (46-116); ASPARTATE AMINOTRANSFERASE 17 U/L (15-37); BILIRUBIN,DIRECT 0.2 mg/dL (0.0-0.2); CHLORIDE 98 mmol/L (98-107); POTASSIUM 3.8 mmol/L (3.5-5.1); SODIUM SERUM 136 mmol/L (136-145); TOTAL PROTEIN, SERUM 8.2 g/dL (6.4-8.2)
[2021-09-18 04:13] LABS: ACETAMINOPHEN 0 ug/ml (10-30)
[2021-09-18 04:20] LABS: CALCIUM, SERUM 9.1 mg/dL (8.5-10.1); CARBON DIOXIDE 28 mmol/L (21-32); GLUCOSE 126 mg/dL (74-106); UREA NITROGEN, BLOOD 20 mg/dL (7-18)
--- NOTE | 2021-09-18 05:05 | NUR ---
FACESHEET AND CLINICALS FAXED TO [facility].
--- NOTE | 2021-09-18 06:48 | NUR ---
PATIENT DENIES SI, WISHES TO LEAVE. MADE AWARE.
[2021-09-18 06:53] LABS: BACTERIA,URINE Few /HPF (None Seen); RBC,URINE NONE SEEN /HPF (0-2); SQUAMOUS EPITHELIAL CELL,UR Moderate /HPF (None Seen)
[2021-09-18 06:54] LABS: HYALINE CASTS, URINE Rare /LPF (None Seen)
== END 2021-09-18 06:49 | disposition home or self-care (01) ==
LOC: ER 02:49
DX: R45.851 Suicidal ideations (principal); F19.10 Other psychoactive substance abuse, uncomplicated; Z20.822 Contact with and (suspected) exposure to COVID-19; Z53.20 Procedure and treatment not carried out because of patient's decision for unspecified reasons; Z59.00 Homelessness unspecified; F31.9 Bipolar disorder, unspecified; F20.9 Schizophrenia, unspecified
CPT/HCPCS: 36415; 80048; 80076; 80143; 80307; 80320; 81001; 85025; 87086; 87426; 99285; C9803; G0480